=== PATIENT | male | born 1955 | race Caucasian/White ===

== ENCOUNTER 2021-12-29 08:16 | Inpatient (IN) | payer MEDICARE, MEDICAID, SELFPAY ==
[2021-12-29] VITALS (16 sets, daily range): BP systolic 100–141; BP diastolic 62–83; PULSE 55–122; RESP 15–22; TEMP 36.6–36.8; O2SAT 92–99; BMI 30.9
--- NOTE | 2021-12-29 08:27 | XRR_ITS ---
PROCEDURE INFORMATION: Exam: XR Chest Exam date and time: 12/29/2021 8:59 AM Age: 66 years old Clinical indication: Cough and dyspnea; Additional info: Dyspnea/cough TECHNIQUE: Imaging protocol: Radiologic exam of the chest. Views: 1 view. COMPARISON: CR Chest 2 views* 04/30/2016 10:22 AM FINDINGS: Lungs: There is prominent left lower lobe consolidation consistent with a pneumonia. The right lung is grossly clear. Pleural spaces: Unremarkable. No pleural effusion. No pneumothorax. Heart/Mediastinum: Unremarkable. No cardiomegaly. Bones/joints: Unremarkable. XR/XR chest 1V portable [id number] IMPRESSION: Left lower lobe pneumonia.
--- NOTE | 2021-12-29 08:28 | ED_ITS ---
HPI - Weakness General: Chief complaint: Weakness Stated complaint: WEAKNESS Time Seen by Provider: 12/29/21 08:19 Source: patient Mode of arrival: EMS Limitations: no limitations History of Present Illness: 66-year-old male with a history of diabetes mellitus and COPD presents emergency room complaining of shortness of breath and weakness for the last 3 weeks. With any exertion he gets significantly short of breath he denies any chest pain. He has had minimally productive cough. Initially he thought he had COVID however it. Has been persisting. He has no known history of coronary artery disease he states he has had several normal stress test in the past. He has not recently tested positive for COVID. He uses albuterol as needed which helps somewhat. MD Complaint: generalized weakness Onset (ago): week(s) (3) Duration: constant Severity: moderate Relieving factors: none Exacerbating factors: none Associated symptoms: Reports decreased appetite, myalgias, nausea and short of breath; Denies chest pain, chills, confusion, melena, diaphoresis, dysuria, easy bruising, fever(s), headache(s), rash, syncope or vomiting Review of Systems Const: Denies: fever(s), chills or diaphoresis Card: Denies: chest pain or syncope GI: Reports: nausea; Denies: abdominal pain, vomiting or melena : Denies: dysuria Neuro: Denies: headache(s) or confusion Yousif/Lymph: Denies: easy bruising [facility] ED PFSH: Medical History CKD (chronic kidney disease) COPD (chronic obstructive pulmonary disease) Diabetes 1.5, managed as type 2 Glaucoma History of cleft palate HTN (hypertension) Hyperlipidemia ASHUTOSH (obstructive sleep apnea) Sinus tachycardia Tobacco abuse Tobacco dependency Venous stasis Surgical History H/O enucleation of left eyeball Family History Father Diabetes CAD (coronary artery disease) Sister Diabetes Social History Smoking and tobacco status: current every day smoker cigarettes Packs smoked per day: 1 Alcohol intake: current Alcohol intake frequency: holidays/special occasions only Physical Exam Const: COMMON NORMALS: no acute distress GENERAL APPEARANCE: cooperative and comfortable ORIENTATION/CONSCIOUSNESS: Yes awake, Yes oriented to person, Yes oriented to place and Yes oriented to time HENMT: COMMON NORMALS: normocephalic, atraumatic and hearing grossly normal bilaterally HEAD & SCALP: normocephalic and atraumatic Resp: AUSCULTATION: rhonchi left lower and wheezes Cardio: COMMON NORMALS: regular rhythm and No murmurs present (Cardio) RATE: tachycardic RHYTHM: regular rhythm HEART SOUNDS: Clicking heart sound present GI: COMMON NORMALS: Soft to palpation and No hepatosplenomegaly present AUSCULTATION: Yes normoactive bowel sounds PALPATION: Yes Soft to palpation, No Tenderness to palpation present (GI), No Guarding due to palpation present (GI) and Yes No hepatosplenomegaly present Extremity: COMMON NORMALS: normal to inspection, capillary refill normal, no clubbing, cyanosis or edema, no calf tenderness and no pedal edema Neuro: SENSORIUM/ORIENTATION: Yes oriented to person, Yes oriented to place and Yes oriented to time Skin: COMMON NORMALS: no rashes or lesions noted GENERAL SKIN EXAM: no rashes or lesions noted Course Vital Signs: Vital signs: Vital Signs Temperature 98.2 F 12/29/21 08:17 Pulse Rate 115 H 12/29/21 10:30 Respiratory Rate 22 H 12/29/21 10:03 Blood Pressure 117/75 12/29/21 10:30 Pulse Oximetry 96 12/29/21 10:30 Oxygen Delivery Me thod 12/29/21 10:30 Oxygen Flow Rate 2 12/29/21 08:17 MDM - Weakness Medical Decision Making Extensive left lower lobe pneumonia patient has a mildly elevated lactate with tachycardia. He also has significant leukocytosis and I believe he can safely be treated as an outpatient disease with hospitalist started ceftriaxone and Zithromax will admit. Lab Data : 12/29/21 08:41 12/29/21 08:41 Radiology Impressions Chest X-Ray 12/29/21 08:27 IMPRESSION: Left lower lobe pneumonia. Laboratory Results WBC 22.5 10^3/uL (4.0-10.0) H 12/29/21 08:41 RBC 4.43 10^6/uL (4.1-5.3) 12/29/21 08:41 Hgb 13.4 g/dL (11.7-16.6) 12/29/21 08:41 Hct 40.4 % (42.0-52.0) L 12/29/21 08:41 MCV 91.2 fl (80-94) 12/29/21 08:41 MCH 30.2 pg (28.0-34.0) 12/29/21 08:41 MCHC 33.2 g/dL (30.0-36.0) 12/29/21 08:41 RDW 13.4 % (12.1-15.1) 12/29/21 08:41 Plt Count 582 10^3/cmm (130-400) H 12/29/21 08:41 MPV 9.9 fL (7.4-10.4) 12/29/21 08:41 Neut % (Auto) 82.3 % 12/29/21 08:41 Lymph % (Auto) 6.7 % 12/29/21 08:41 [place] % (Auto) 9.0 % 12/29/21 08:41 Eos % (Auto) 0.0 % 12/29/21 08:41 Baso % (Auto) 0.4 % 12/29/21 08:41 Neut # (Auto) 18.45 10^3/uL (1.8-7.7) H 12/29/21 08:41 Lymph # (Auto) 1.5 10^3/uL (0.8-4.8) 12/29/21 08:41 [place] # (Auto) 2.0 10^3/uL (0.2-0.9) H 12/29/21 08:41 Eos # (Auto) 0.0 10^3/uL (0.0-0.8) 12/29/21 08:41 Baso # (Auto) 0.1 10^3/uL (0.0-0.1) 12/29/21 08:41 Nucleated RBC % (auto) 0 % 12/29/21 08:41 Nucleated RBCs # 0.0 /100WBC 12/29/21 08:41 Specimen Type Arterial 12/29/21 08:27 Sample Site Brachial, left 12/29/21 08:27 ABG pH 7.60 (7.35-7.45) H* 12/29/21 08:27 ABG pCO2 28.8 mmHg (35-45) L 12/29/21 08:27 ABG pO2 53.9 mmHg (80.0-100.0) L 12/29/21 08:27 ABG HCO3 28.5 mmol/L (22-26) H 12/29/21 08:27 ABG O2 Saturation 92.8 12/29/21 08:27 ABG Base Excess 7.4 mmol/L (-2.0-2.0) H 12/29/21 08:27 Zach Test Pos 12/29/21 08:27 A-a O2 Gradient 7.8 mmHg (5-10) 12/29/21 08:27 Hematocrit 39.5 % (42-52) L 12/29/21 08:27 Hgb O2 Saturation 89.2 % (95-100) L 12/29/21 08:27 Carboxyhemoglobin 3.4 %THgb (0.4-20.1) 12/29/21 08:27 Methemoglobin 0.5 % (0.4-1.5) 12/29/21 08:27 Total Hemoglobin 12.9 g/dL (14-18) L 12/29/21 08:27 Sodium 130.0 mmol/L (131-143) L 12/29/21 08:27 Potassium 3.1 mmol/L (3.5-5.0) L 12/29/21 08:27 Glucose 279.0 mg/dL (70-115) H 12/29/21 08:27 Ionized Calcium 1.1 mmol/L (1.1-1.4) 12/29/21 08:27 O2 Delivery Device Room air 12/29/21 08:27 FiO2 21.0 % 12/29/21 08:27 Corral Boss ID Bd 12/29/21 08:27 Sodium 131 mmol/L (136-145) L 12/29/21 08:41 Potassium 3.4 mmol/L (3.5-5.1) L 12/29/21 08:41 Chloride 88 mmol/L (98-107) L 12/29/21 08:41 Carbon Dioxide 26 mmol/L (22-29) 12/29/21 08:41 Anion Gap 20.4 (5-19) H 12/29/21 08:41 BUN 9 mg/dL (8-23) 12/29/21 08:41 Creatinine 0.6 mg/dL (0.7-1.2) L 12/29/21 08:41 GFR Calculation 134.4 mL/min (90-130) H 12/29/21 08:41 Glucose 272 mg/dL (65-115) H 12/29/21 08:41 Calculated Osmolality 280 mOsm/kg (285-295) L 12/29/21 08:41 Lactic Acid 2.3 mmol/L (0.5-2.2) H 12/29/21 08:41 Calcium 7.9 mg/dL (8.5-10.5) L 12/29/21 08:41 Total Bilirubin 0.8 mg/dL (0.15-1.2) 12/29/21 08:41 AST 50 U/L (0-40) H 12/29/21 08:41 ALT 39 U/L (0-41) 12/29/21 08:41 Alkaline Phosphatase 122 U/L (40-130) 12/29/21 08:41 Troponin T Baseline 13 ng/L (0-15) 12/29/21 08:41 NT-Pro-B Natriuret Pep 1432 pg/mL (0-125) H 12/29/21 08:41 Total Protein 5.7 g/dL (6.6-8.7) L 12/29/21 08:41 Albumin 2.3 g/dL (3.5-5.2) L 12/29/21 08:41 Globulin 3.4 g/dL (1.3-4.6) 12/29/21 08:41 Discharge Plan Discharge Patient Disposition: Admitted As Inpatient Clinical Impression: Pneumonia, COPD exacerbation Condition: Stable Coding Level of Care Code ED Credit Collections Rep for Pollo Fwd Exam Detailed
--- NOTE | 2021-12-29 08:36 | ECG_ITS ---
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 Measurements Intervals [place] Rate: 115 P: 83 IA: 142 QRS: 64 QRSD: 102 T: 102 QT: 365 QTc: 505 Interpretive Statements SINUS TACHYCARDIA POSSIBLE RIGHT ATRIAL ENLARGEMENT [0.25mV P-WAVE] POSSIBLE LEFT ATRIAL ENLARGEMENT [-0.1mV P-WAVE IN V1/V2] NONSPECIFIC ST & T-WAVE ABNORMALITY No previous ECG available for comparison Electronically Signed On 12-30-2021 7:16:14 CDT by Gertrudis Fernández M.D. [id number]
[2021-12-29 08:47] LABS: Basophils # 0.1 10^3/uL (0.0-0.1); Basophils % 0.4 %; Hematocrit 40.4 % (42.0-52.0); Hemoglobin 13.4 g/dL (11.7-16.6); Lymphocytes # 1.5 10^3/uL (0.8-4.8); Lymphocytes % 6.7 %; Mean Corpuscular HGB Conc 33.2 g/dL (30.0-36.0); Mean Corpuscular Hemoglobin 30.2 pg (28.0-34.0); Mean Corpuscular Volume 91.2 fl (80-94); Mean Platelet Volume 9.9 fL (7.4-10.4); Neutrophils # 18.45 10^3/uL (1.8-7.7); Neutrophils % 82.3 %; Nucleated Red Blood Cells % 0 %; Platelet Count 582 10^3/cmm (130-400); Red Blood Count 4.43 10^6/uL (4.1-5.3); Red Cell Distribution Width 13.4 % (12.1-15.1); White Blood Count 22.5 10^3/uL (4.0-10.0)
[2021-12-29] MEDS: ipratropium-albuterol 3 mL Neb INHALATION (08:56)
[2021-12-29 09:00] LABS: ABG PCO2 28.8 mmHg (35-45); Alveolar-Arterial Oxygen Gradi 7.8 mmHg (5-10); Arterial Blood Gas Hematocrit 39.5 % (42-52); Base Excess ABG 7.4 mmol/L (-2.0-2.0); Blood Gas Allen Test Pos; Blood Gas Sample Type Arterial; Carboxyhemoglobin 3.4 %THgb (0.4-20.1); HCO3 ABG 28.5 mmol/L (22-26); HGB O2 Sat 89.2 % (95-100); Ionized Calcium Level - ABG 1.1 mmol/L (1.1-1.4); Methemoglobin 0.5 % (0.4-1.5); Oxygen Saturation ABG 92.8; PO2 ABG 53.9 mmHg (80.0-100.0); Potassium Level - ABG 3.1 mmol/L (3.5-5.0); Total Hemoglobin 12.9 g/dL (14-18)
[2021-12-29 09:01] LABS: Blood Gas Operator Identificat BD; Blood Gas Sample Site Brachial, left; Oxygen Device ROOM AIR
[2021-12-29 09:12] LABS: Lactic Sepsis W/Reflex 2.3 mmol/L (0.5-2.2)
[2021-12-29 09:16] LABS: Troponin(5th) Baseline 13 ng/L (0-15)
[2021-12-29 09:23] LABS: Alanine Aminotransferase 39 U/L (0-41); Albumin Level 2.3 g/dL (3.5-5.2); Alkaline Phosphatase 122 U/L (40-130); Anion Gap 20.4 (5-19); Aspartate Amino Transferase 50 U/L (0-40); Blood Urea Nitrogen 9 mg/dL (8-23); Calcium 7.9 mg/dL (8.5-10.5); Carbon Dioxide 26 mmol/L (22-29); Chloride 88 mmol/L (98-107); Globulin 3.4 g/dL (1.3-4.6); Glomerular Filtration Rate 134.4 mL/min (90-130); Glucose 272 mg/dL (65-115); NT Pro B Type Natriuretic Pept 1432 pg/mL (0-125); Osmolality Calculated 280 mOsm/kg (285-295); Potassium 3.4 mmol/L (3.5-5.1); Sodium 131 mmol/L (136-145); Total Bilirubin 0.8 mg/dL (0.15-1.2); Total Protein 5.7 g/dL (6.6-8.7)
[2021-12-29] MEDS: sodium chloride 0.9% 1,000 ML 999 ML IV (09:29)
--- NOTE | 2021-12-29 10:28 | ECG_ITS ---
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 Measurements Intervals [place] Rate: 115 P: 74 MN: 147 QRS: 23 QRSD: 101 T: 104 QT: 364 QTc: 505 Interpretive Statements SINUS TACHYCARDIA POSSIBLE LEFT ATRIAL ENLARGEMENT [-0.1mV P-WAVE IN V1/V2] MODERATE ST DEPRESSION [0.05+ mV ST DEPRESSION] ABNORMAL QRS-T ANGLE [QRS-T AXIS DIFFERENCE > 60] Compared to ECG 12/29/2021 08:36:34 ST (T wave) deviation now present T-wave abnormality no longer present Electronically Signed On 12-30-2021 7:32:50 CDT by Gertrudis Fernández M.D. [id number]
[2021-12-29 10:31] LABS: Reflex Lactate Order REFLEX LACTIC ORDERD
--- NOTE | 2021-12-29 10:47 | P.HP_ITS ---
Providers/Chief Complaint Admitting Physician: Mark Parr MD, hospitalist Primary Care Provider: Mary Jo Nelson DO Chief Complaint: WEAKNESS History of Present Illness Rommel Austin is a 66 year old male who presents to the hospital with complaints of shortness of breath, fatigue, weakness for the last 2 to 3 weeks. He reports a cough occasionally productive of greenish sputum that has persisted. He denies any fever at home, but has not taken his temperature. He reports he is short of breath with any exertion. He has had no vomiting or diarrhea but reports he has not been eating and drinking well with his illness. He denies any ill contacts. He reports no COVID contacts. No chest discomfort. No hematemesis. In the emergency department he received a breathing treatment and IV steroids. Review of Systems General: Reports: 10 or more systems reviewed and unremarkable except in HPI and below Const: Reports: fatigue and malaise; Denies: fever(s) or chills Eyes: Denies: change in vision ENMT: Denies: throat pain Card: Reports: swelling of feet/ankles and dyspnea on exertion; Denies: chest pain Resp: Reports: dyspnea and productive cough GI: Denies: abdominal pain, nausea, vomiting, hematochezia or melena : Denies: flank pain Musc: Denies: neck pain Skin/Breast: Denies: rash Neuro: Denies: headache(s) or numbness in extremities Psych: Denies: anxiety or depression Endo: Denies: polyuria Yousif/Lymph: Denies: easy bruising or easy bleeding All/Imm: Denies: urticaria Medications/Allergies Home Medications Medication Instructions Recorded Confirmed Last Taken Type albuterol sulfate 90 mcg/actuation 2 puff inhalation Q6H PRN 10/25/19 11/05/20 Unknown History aerosol inhaler (ProAir HFA) bimatoprost 0.01 % eye drops 1 drop ophthalmic (eye) DAILY 10/25/19 11/05/20 Unknown History (Faith) brinzolamide 1 %-brimonidine 0.2 % 1 drop ophthalmic (eye) TID 10/25/19 11/05/20 Unknown History eye drops,suspension (Simbrinza) metformin 500 mg tablet 500 mg PO DAILY 10/25/19 11/05/20 Unknown History simvastatin 20 mg tablet 20 mg PO DAILY 10/25/19 11/05/20 Unknown History Allergies Allergy/AdvReac Type Severity Reaction Status Date / Time propranolol Allergy Severe ALGY-Bliste Verified 11/05/20 14:20 r PFSH Acute PFSH: Medical History (Updated 12/29/21 @ 11:04 by Mark Parr MD) CKD (chronic kidney disease) COPD (chronic obstructive pulmonary disease) Diabetes 1.5, managed as type 2 Glaucoma History of cleft palate HTN (hypertension) Hyperlipidemia ASHUTOSH (obstructive sleep apnea) Sinus tachycardia Tobacco abuse Tobacco dependency Venous stasis Surgical History H/O enucleation of left eyeball Family History Father Diabetes CAD (coronary artery disease) Sister Diabetes Social History Smoking and tobacco status: current every day smoker cigarettes Packs smoked per day: 1 Alcohol intake: current Alcohol intake frequency: holidays/special occasions only Vitals/I&O/Wt Last Vital Signs Temp 98.2 F 12/29/21 08:17 Pulse 115 H 12/29/21 10:30 Resp 22 H 12/29/21 10:03 BP 117/75 12/29/21 10:30 Pulse Ox 96 12/29/21 10:30 O2 Del Method 12/29/21 10:30 O2 Flow Rate 2 12/29/21 08:17 Weight last 48 hrs Weight 106.594 kg Physical Exam Narrative: General exam is a white male, with elevated heart rate, tachypneic with mild to moderate retractions and respiratory distress with frequent coughing. He appears acutely ill. HEENT: Atraumatic normocephalic. Pupils equally round. Oropharynx postsurgical, no uvula secondary to cleft palate repair. Candidiasis is noted Neck is supple no lymphadenopathy or thyromegaly Cardiovascular tachycardic, regular, no murmur Lungs diminished breath sounds at the bases. Crackles on the left. Egophony on the left. Abdomen is soft nontender positive bowel sounds. No obvious organomegaly exam is deferred Extremities no cyanosis or clubbing. Trace edema is present bilaterally. Skin no rash Neuro no obvious focal deficits. Data : 12/29/21 08:41 12/29/21 08:41 Other Labs: Chest x-ray demonstrates a left lower lobe pneumonia. EKG demonstrates sinus tachycardia, normal axis, right atrial enlargement. T wave inversion is noted laterally in V4 through 6 ABG demonstrates a pH of 7.6, PCO2 29, PO2 54 on room air Lactic acid is elevated at 2.3, calcium is 7.9, AST 50 all other LFTs normal BNP elevated at 1432 Albumin 2.3 A&P Assessment and plan (1) Pneumonia: Patient with significant pneumonia on chest x-ray. He has notably low PO2 on room air. His white blood cell count is markedly elevated, as is his heart rate. Initiate Rocephin and azithromycin Obtain sputum and blood cultures Initiate Rocephin and azithromycin May need oxygen, will continue to evaluate Discussed with him stopping smoking Status: Acute (2) COPD exacerbation: Received Solu-Medrol in the emergency department From my understanding wheezing is markedly improved after breathing treatment. Continue prednisone 40 mg daily Continue pulmonary toilet with every 4 hours DuoNeb, twice daily budesonide Status: Acute (3) Diabetes 1.5, managed as type 2: Consistent carb diet Sliding scale insulin Check TSH Status: Acute (4) Thrush: His nutrition is poor. He is diabetic. Albumin is low. Check urinalysis to make sure significant proteinuria does not exist. Check HIV Initiate nystatin Monitor for improvement Status: Acute Plan Mild hypokalemia. Supplement. Check magnesium level. Mild hypokalemia. May in part be due to his hyperglycemia. Leukocytosis, secondary to pneumonia Elevated AST. Check hepatitis panel Elevated BNP. Check echocardiogram Attestations Medical Necessity Statement*: Will require greater than 2 midnight stay secondary to severe pneumonia on x-ray, low PO2, significantly abnormal vital signs in this patient with visible respiratory distress with retractions. Coding Level of Care Code Acute Clinical Courier for [facility]o Ronquillo Diagnoses Pneumonia J18.9 COPD exacerbation J44.1 Diabetes 1.5, managed as type 2 E13.9 Thrush B37.0
[2021-12-29 11:30] LABS: Hepatitis A Antibody IgM Non-Reactive (Nonreactive); Hepatitis B Core IgM Non-Reactive (Nonreactive); Hepatitis B Surface Antigen Non-Reactive (Nonreactive); Hepatitis C Virus Antibody Non-Reactive (Nonreactive)
[2021-12-29 11:31] LABS: Urine Color Dark Yellow (Yellow)
[2021-12-29 11:35] LABS: Blood Urine Neg (Negative); Nitrate Urine Negative (Negative); Protein Urine Neg (Negative); Specific Gravity, Urine 1.015 (1.005-1.030); Urine Appearance Clear (CLEAR); pH Urine 6 (5-7)
[2021-12-29 11:36] LABS: Bilirubin Urine 1+ (Negative); Glucose Urine UA 4+ (Normal); Ketones Urine 2+ (Negative); Leukocyte Esterase Urine Negative (Negative); Urobilinogen Urine 4+ mg/dL (Negative)
--- NOTE | 2021-12-29 11:41 | PC.PHAR ---
pt states he takes care of his own medications-pt states he hasnt taken metformin 500mg and zocor 20mg in about 3 years [facility] states last filled [id number] states takes no rx medications-ext med history shows sildenafil 20mg take 3 tabs qd prn on 09/06/21 10d/s pt states he never got that medications
[2021-12-29 11:54] LABS: Troponin 5 2HR 12.12 ng/L (0-15)
[2021-12-29 12:03] LABS: HIV 1 & 2 Antibody Non-Reactive (Non-Reactiv); HIV 1 & 2 Antigen Non-Reactive (Non-Reactiv)
[2021-12-29 12:04] LABS: Troponin 5 2HR Delta -0.88 ABS# (0-10)
[2021-12-29 12:09] LABS: Add Urine Culture? No; Bacteria Urine TRACE /hpf; Mucus Urine 1+ /hpf; Squamous Epithelial Cell Urine 0-4 /hpf (0-5); WBC Urine 0-4 /hpf (0-5)
[2021-12-29 13:34] LABS: Adenovirus Not Detected (NOT DETECT); Chlamydia Pneumoniae Not Detected (NOT DETECT); Coronavirus 229E,HKU1,NL63,OC4 Not Detected (NOT DETECT); Human Metapneumovirus Not Detected (NOT DETECT); Human Rhinovirus/Enterovirus Not Detected (NOT DETECT); Influenza A Not Detected (NOT DETECT); Influenza A H1 Not Detected (NOT DETECT); Influenza A H1-2009 Not Detected (NOT DETECT); Influenza A H3 Not Detected (NOT DETECT); Influenza B Not Detected (NOT DETECT); Mycoplasma Pneumoniae Not Detected (NOT DETECT); Parainfluenza Virus Type 1 Not Detected (NOT DETECT); Parainfluenza Virus Type 2 Not Detected (NOT DETECT); Parainfluenza Virus Type 3 Not Detected (NOT DETECT); Parainfluenza Virus Type 4 Not Detected (NOT DETECT); Respiratory Syncytial Virus A Not Detected (NOT DETECT); Respiratory Syncytial Virus B Not Detected (NOT DETECT); SARS-COV-2 Not Detected (NOT DETECT)
[2021-12-29] MEDS: cefTRIAXone 1,000 MG in sodium chloride 0.9% (plus) 50 ML 100 MG IV (14:16)
--- NOTE | 2021-12-29 14:28 | ECG_ITS ---
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 Measurements Intervals [place] Rate: 109 P: 74 MD: 158 QRS: 48 QRSD: 100 T: 103 QT: 383 QTc: 516 Interpretive Statements SINUS TACHYCARDIA WITH FREQUENT VENTRICULAR PREMATURE COMPLEXES POSSIBLE LEFT ATRIAL ENLARGEMENT [-0.1mV P-WAVE IN V1/V2] MODERATE ST DEPRESSION [0.05+ mV ST DEPRESSION] Compared to ECG 12/29/2021 10:29:01 Ventricular premature complex(es) now present ST (T wave) deviation still present Electronically Signed On 12-30-2021 7:31:25 CDT by Gertrudis Fernández M.D. [email or web address].[email or web address]/store/[id number]
[2021-12-29] MEDS: azithromycin 500 MG in sodium chloride 0.9% 250 ML 250 MG IV (14:50)
[2021-12-29] MEDS: potassium chloride ER 20 mEq Tablet 40 MEQ PO (14:53)
[2021-12-29 15:20] LABS: Troponin 5 6HR 9.96 ng/L (0-15)
[2021-12-29 15:34] LABS: Troponin 5 6HR Delta -3.04 ng/L (0-12)
--- NOTE | 2021-12-29 17:50 | USCV_ITS ---
Rommel Austin Age: 66 Gender: M : 1955 Exam Date: 12/29/2021 21:32 Ordering Phys: Mark Parr MD Technologist: JOEY [place] [facility] [place] Indication: elevated BNP BP: 141 / 66 HR: 107 Rhythm: Sinus Technical Quality: Adequate MEASUREMENTS (Male / Female) Normal Values 2D ECHO LV Diastolic Diameter PLAX 5.0 cm 4.2 - 5.9 / 3.9 - 5.3 cm LV Systolic Diameter PLAX 3.1 cm IVS Diastolic Thickness 1.0 cm 0.6 - 1.0 / 0.6 - 0.9 cm IVS Systolic Thickness 2.0 cm LVPW Diastolic Thickness 1.1 cm 0.6 - 1.0 / 0.6 - 0.9 cm LVPW Systolic Thickness 1.3 cm LVOT Diameter 2.0 cm LV Ejection Fraction 2D Teich 68.2 % LV Ejection Fraction MOD 2C 50.0 % LV Ejection Fraction 2C AL 48.1 % LA Diameter 3.3 cm LA Width 3.5 cm LA Height 5.6 cm RA Width 3.7 cm RA Height 4.5 cm Aorta at Sinotubular Diameter 2.8 cm M-MODE Aortic Annulus Diameter 2.7 cm LA Ao Ratio MM 1.1 MV E Point Septal Separation 0.3 cm DOPPLER AV Peak Velocity 161.0 cm/s LVOT Peak Velocity 73.0 cm/s AV Area Cont Eq vti 1.2 cm squared AV Area Cont Eq pk 1.4 cm squared MV Peak Velocity 109.0 cm/s MV Area PHT 4.3 cm squared Mitral E to A Ratio 0.7 MV E' Velocity 44.5 cm/s Mitral E to MV E' Ratio 7.5 Mitral E to LV E' Lateral Ratio 9.4 Mitral E to LV E' Septal Ratio 6.3 TR Peak Velocity 270.0 cm/s TR Peak Gradient 29.2 mmHg TV Peak E Velocity 52.0 cm/s Right Atrial Pressure 5.0 mmHg Pulmonary Artery Systolic Pressu 34.2 mmHg PV Peak Velocity 121.0 cm/s RV Acceleration Time 0.1 s RV Ejection Time 0.3 s RV AcT/ET 0.4 FINDINGS Left Ventricle Left ventricle is normal in size. LV systolic function is borderline low with EF of 45-50%. Borderline global hypokinesis. Grade 1 diastolic dysfunction. Right Ventricle Normal in size and function Right Atrium Normal in size Left Atrium Normal in size Mitral Valve Structurally normal mitral valve. Aortic Valve Grossly normal. No significant stenosis or regurgitation is seen. Tricuspid Valve Trace tricuspid regurgitation. Insufficient TR jet to calculate RVSP Pulmonic Valve Not well-visualized Pericardium Normal Aorta Normal in size IVC CONCLUSIONS LV systolic function is borderline low with EF 45-50%. Grade 1 diastolic dysfunction. No significant valvular heart disease is seen. Trace tricuspid regurgitation. Compared to prior echocardiogram from 2014, no significant changes are seen. Yaon Juarez MD (Electronically Signed) Final Date: 30 December 2021 11:35 S
[2021-12-29] MEDS: enoxaparin 40 mg/0.4 mL Syringe SUBCUT (19:37)
[2021-12-29] MEDS: nystatin 100,000 unit/mL UDC 5 mL 500000 UNIT PO (19:37)
[2021-12-29 21:18] LABS: Glucose Point of Care 355 mg/dL (70-110)
[2021-12-29] MEDS: insulin lispro 100 unit/1 mL SUBCUT (22:06)
[2021-12-30] VITALS (15 sets, daily range): BP systolic 93–119; BP diastolic 56–69; PULSE 55–129; RESP 16–20; TEMP 36.3–36.7; O2SAT 93–96
[2021-12-30] MEDS: ipratropium-albuterol 3 mL Neb INHALATION ×7 (01:17→23:40)
[2021-12-30 06:11] LABS: Glucose Point of Care 261 mg/dL (70-110)
[2021-12-30 06:13] LABS: Basophils # 0.1 10^3/uL (0.0-0.1); Basophils % 0.5 %; Hematocrit 39.3 % (42.0-52.0); Hemoglobin 12.3 g/dL (11.7-16.6); Lymphocytes # 2.2 10^3/uL (0.8-4.8); Lymphocytes % 9.8 %; Mean Corpuscular HGB Conc 31.3 g/dL (30.0-36.0); Mean Corpuscular Hemoglobin 29.8 pg (28.0-34.0); Mean Corpuscular Volume 95.2 fl (80-94); Monocytes # 1.6 10^3/uL (0.2-0.9); Monocytes % 7.4 %; Neutrophils # 17.69 10^3/uL (1.8-7.7); Neutrophils % 80.4 %; Nucleated Red Blood Cells % 0 %; Platelet Count 514 10^3/cmm (130-400); Red Blood Count 4.13 10^6/uL (4.1-5.3); Red Cell Distribution Width 13.7 % (12.1-15.1)
[2021-12-30 06:39] LABS: Alanine Aminotransferase 33 U/L (0-41); Alkaline Phosphatase 99 U/L (40-130); Blood Urea Nitrogen 15 mg/dL (8-23); Calcium 7.6 mg/dL (8.5-10.5); Carbon Dioxide 28 mmol/L (22-29); Chloride 96 mmol/L (98-107); Globulin 3.1 g/dL (1.3-4.6); Glomerular Filtration Rate 165.9 mL/min (90-130); Glucose 237 mg/dL (65-115); Magnesium 2.3 mg/dL (1.7-2.3); Osmolality Calculated 291 mOsm/kg (285-295); Sodium 136 mmol/L (136-145); Total Bilirubin 0.4 mg/dL (0.15-1.2); Total Protein 5.1 g/dL (6.6-8.7)
[2021-12-30 06:47] LABS: Anion Gap 16.2 (5-19); Aspartate Amino Transferase 37 U/L (0-40); Potassium 4.2 mmol/L (3.5-5.1)
[2021-12-30] MEDS: budesonide 0.5 mg/2 mL Neb INHALATION ×2 (08:05→20:34)
--- NOTE | 2021-12-30 08:10 | PM.PN ---
Subjective Subjective: Rommel reports he feels a little bit better. Is able to tolerate food and liquid by mouth. Still coughing quite a bit. Has not been up and out of bed. No chest discomfort. Medications: Reviewed: Yes Vitals/I&O/Wt Last Vital Signs Temp 97.7 F 12/30/21 07:24 Pulse 106 H 12/30/21 08:05 Resp 18 12/30/21 08:05 BP 109/65 12/30/21 07:24 Pulse Ox 94 12/30/21 08:05 O2 Del Method 12/30/21 08:05 O2 Flow Rate 2 12/29/21 08:17 12/29/21 12/30/21 12/30/21 22:59 06:59 14:59 Intake Total 540 / 1540 540 / 2080 Output Total 300 / 300 Balance 240 / 1240 540 / 1780 Weight last 48 hrs Weight 106.594 kg Physical Exam Narrative: General exam is a white male, tachycardic, appears slightly improved from yesterday. Neck is supple no lymphadenopathy or thyromegaly Cardiovascular tachycardic, regular, no murmur Lungs diminished breath sounds at the bases. Crackles on the left. Egophony on the left. Abdomen is soft nontender positive bowel sounds. No obvious organomegaly exam is deferred Extremities no cyanosis or clubbing. Trace edema is present bilaterally. Skin no rash Data : 12/30/21 05:50 12/30/21 05:50 Micro: Microbiology 12/29/21 11:48 Blood Culture - Preliminary Blood SPECIMEN COLLECTED 12/29/21 11:43 Blood Culture - Preliminary Blood SPECIMEN COLLECTED A&P Assessment and plan (1) Pneumonia: Patient with significant pneumonia on chest x-ray. He has notably low PO2 on room air. His white blood cell count is markedly elevated, as is his heart rate. Continue Rocephin and azithromycin Await sputum and blood cultures Discussed with him stopping smoking Status: Acute (2) COPD exacerbation: Continue prednisone Continue pulmonary toilet, with budesonide and DuoNeb Status: Acute (3) Diabetes 1.5, managed as type 2: Consistent carb diet Sliding scale insulin TSH checked and normal Status: Acute (4) Thrush: His nutrition is poor. He is diabetic. Albumin is low. Urinalysis was checked. No significant proteinuria. HIV negative Continue nystatin Monitor for improvement Status: Acute Plan Mild hypokalemia. Resolved Leukocytosis, secondary to pneumonia Elevated AST. Hepatitis panel negative Elevated BNP. Await echocardiogram Attestations Medical Necessity Statement*: Needs continued hospitalization for IV antibiotics for pneumonia and pulmonary toilet for COPD exacerbation. Possible discharge tomorrow. Coding Level of Care Code Acute Clerical Administrative Assistant for [facility] Fwd Diagnoses Pneumonia J18.9 COPD exacerbation J44.1 Diabetes 1.5, managed as type 2 E13.9 Thrush B37.0
[2021-12-30] MEDS: insulin lispro 100 unit/1 mL SUBCUT ×4 (10:10→21:29)
[2021-12-30] MEDS: nystatin 100,000 unit/mL UDC 5 mL 500000 UNIT PO ×4 (10:10→21:28)
[2021-12-30] MEDS: cefTRIAXone 1,000 MG in sodium chloride 0.9% (plus) 50 ML 100 MG IV (10:11)
[2021-12-30] MEDS: azithromycin 500 MG in sodium chloride 0.9% 250 ML 250 MG IV (10:11)
[2021-12-30] MEDS: predniSONE 20 mg Tablet 40 MG PO (10:12)
[2021-12-30 11:48] LABS: Glucose Point of Care 354 mg/dL (70-110)
--- NOTE | 2021-12-30 11:49 | PC.CHAP ---
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 [] Patient/Family/Request visit [] Outpatient visit [] Follow-up visit [] Physician referral [] Code/Alert [x] Routine visit [] Staff referral [] Actively dying [] Patient sleeping [] Family support [] [] Out of room [] Palliative care [] [] Receiving care in room [] Pre-surgical visit [] Trauma [] Long length of stay [] ICU visit [] Other: Relational/Emotional Strength [x] Patient feels connected with others/family/visitors/staff [] Distress [] Loneliness/isolation [] Abandonment Spirituality of Patient [x] Person of Eleni [] Attends Pentecostal of their Eleni [x] Believes in Prayer [] Reads Bible or Sabianism materials [] There are Spiritual issues to be addressed Car Dispatcher Interventions x []x Prayer [x]x Active listening x[] Non-anxious presence [] Spiritual/emotional support [] Crisis/trauma care [] Spiritual counseling [] Bereavement support [] Provided bereavement packet [] Provided Bible/devotional materials [] Provided toy/stuffed animal, coloring book to patient or family member [] Provided Communion [] Anointing/[place] [] Salvation [x] Completed spiritual assessment [] Other: Impact on Illness or Injury [] Angry [] Fearful [] Anxious [] Often cries [] Exhaustion [] Unable to work [] Unable to attend druze [] Unable to walk/stand [] Unable to read [] Unable to drive [] Unable to eat/drink [] Unable to sleep [] Unable to be with family [] Patient intubated [] Other: Summary Time spent with patient 10 min
[2021-12-30 16:14] LABS: Glucose Point of Care 263 mg/dL (70-110)
[2021-12-30 20:38] LABS: Glucose Point of Care 344 mg/dL (70-110)
[2021-12-30] MEDS: enoxaparin 40 mg/0.4 mL Syringe SUBCUT (21:29)
[2021-12-30] MEDS: polyethylene glycol 3350 Pkt 17 gm PO (23:05)
[2021-12-31] VITALS (8 sets, daily range): BP systolic 116–123; BP diastolic 68–76; PULSE 98–106; RESP 16–18; TEMP 36.5–36.9; O2SAT 95–100
[2021-12-31] MEDS: ipratropium-albuterol 3 mL Neb INHALATION ×3 (04:06→11:26)
[2021-12-31 04:18] LABS: Basophils # 0.1 10^3/uL (0.0-0.1); Basophils % 0.3 %; Hematocrit 37.1 % (42.0-52.0); Hemoglobin 11.7 g/dL (11.7-16.6); Lymphocytes # 2.6 10^3/uL (0.8-4.8); Lymphocytes % 13.8 %; Mean Corpuscular HGB Conc 31.5 g/dL (30.0-36.0); Mean Corpuscular Hemoglobin 29.3 pg (28.0-34.0); Mean Corpuscular Volume 92.8 fl (80-94); Mean Platelet Volume 9.7 fL (7.4-10.4); Monocytes # 1.2 10^3/uL (0.2-0.9); Monocytes % 6.4 %; Neutrophils # 14.26 10^3/uL (1.8-7.7); Neutrophils % 77.4 %; Nucleated Red Blood Cells % 0 %; Platelet Count 522 10^3/cmm (130-400); Red Cell Distribution Width 13.6 % (12.1-15.1); White Blood Count 18.4 10^3/uL (4.0-10.0)
[2021-12-31 04:47] LABS: Anion Gap 13.4 (5-19); Blood Urea Nitrogen 15 mg/dL (8-23); Calcium 7.9 mg/dL (8.5-10.5); Carbon Dioxide 29 mmol/L (22-29); Chloride 98 mmol/L (98-107); Glomerular Filtration Rate 134.4 mL/min (90-130); Glucose 166 mg/dL (65-115); Osmolality Calculated 289 mOsm/kg (285-295); Potassium 3.4 mmol/L (3.5-5.1); Sodium 137 mmol/L (136-145)
[2021-12-31] MEDS: acetaminophen 325 mg Tablet 650 MG PO (05:47)
[2021-12-31 06:33] LABS: Glucose Point of Care 192 mg/dL (70-110)
[2021-12-31] MEDS: budesonide 0.5 mg/2 mL Neb INHALATION (07:20)
--- NOTE | 2021-12-31 07:28 | PC.NURSE ---
patient having a breathing treatment during vitals
[2021-12-31] MEDS: predniSONE 20 mg Tablet 40 MG PO (08:27)
[2021-12-31] MEDS: potassium chloride ER 20 mEq Tablet 40 MEQ PO (08:27)
[2021-12-31] MEDS: nystatin 100,000 unit/mL UDC 5 mL 500000 UNIT PO (08:27)
--- NOTE | 2021-12-31 08:46 | P.DS_ITS ---
Discharge Providers Date of Admission: 12/29/21 16:41 Date of Discharge: December 31, 2021 Attending Provider at Admission: Mark Parr MD Attending Provider at Discharge: Mark Parr MD Primary Care Provider: Mary Jo Nelson DO Diagnoses at Discharge Discharge Diagnosis (1) Pneumonia: Status: Acute (2) COPD exacerbation: Status: Acute (3) Diabetes 1.5, managed as type 2: Status: Acute (4) Thrush: Status: Acute Reason for Visit Reason for Visit: WEAKNESS Hospital Course Hospital Course Rommel is a 66-year-old white male who presented to the hospital short of breath. He was found to have a significant left lower lobe pneumonia, with abnormal vital signs and markedly elevated white blood cell count.. He was placed in the hospital on Rocephin and azithromycin. Blood cultures were obtained. He also had a COPD exacerbation, and a dose of IV steroids was given and p.o. steroids initiated as well as pulmonary toilet. During his hospital stay he did well, with vital signs improving and he being less short of breath and having less cough. By December 31 it was thought he could be discharged home. At that time he was afebrile. He was having some right lower back pain with radiation into his leg. He believes this might be sciatica. He has had this before and we discussed further evaluation if it persists. He was able to ambulate without difficulty during his hospital stay. He finished 3 days of IV Zithromax in the hospital and therefore will finish up 7 days of cefdinir as an outpatient. He w ill follow-up with a primary care provider in 3 to 5 days, and will need a repeat chest x-ray arranged by primary care provider in 3 weeks to ensure clearing of pneumonia. I discussed this in depth with the patient, that this needs to be done to prove no masses/tumors are in the area of pneumonia. He was given an opportunity to ask questions, and had no further concerns at discharge. He was encouraged not to smoke. I will restart his metformin upon discharge that he was on previously, for his diabetes. From my understanding he had lost his previous primary care provider and had not been taking the medicine on admission. He was also noted to have some thrush on admission that will be treated with nystatin. HIV was negative. An echocardiogram was done while he was in the hospital, which demonstrated borderline low EF at 45 to 50%, grade 1 diastolic dysfunction, no significant valvular heart disease and no change from 2015. This was done secondary to slight elevation in BNP on admission. He did not have clinical evidence of heart failure. Further evaluation for this can occur as an outpatient, as it appears unchanged from 7 years previously. Physical Exam Narrative: General exam no apparent distress Neck is supple no lymphadenopathy or thyromegaly Cardiovascular regular rate and rhythm without murmur Lungs clear no wheezing or crackles. Diminished breath sounds were noted bilaterally Abdomen is soft with positive bowel sounds Extremities no cyanosis clubbing or edema Discharge Data Studies Completed and Pending Completed Studies During Hospitalization Category Date Time Status XR chest 1V portable [id number] Stat Exams 12/29/21 08:27 Completed CV. echo complete* [id number] Routine Ultrasound 12/29/21 17:50 Completed Pending at discharge Category Date Time Status Blood Culture Stat Lab 12/29/21 11:48 Results Sputum Culture and Gram Stain Routine Lab 12/29/21 10:56 Uncollected Radiology Impressions Chest X-Ray 12/29/21 08:27 IMPRESSION: Left lower lobe pneumonia. Laboratory Results WBC 18.4 10^3/uL (4.0-10.0) H 12/31/21 03:43 RBC 4.00 10^6/uL (4.1-5.3) L 12/31/21 03:43 Hgb 11.7 g/dL (11.7-16.6) 12/31/21 03:43 Hct 37.1 % (42.0-52.0) L 12/31/21 03:43 MCV 92.8 fl (80-94) 12/31/21 03:43 MCH 29.3 pg (28.0-34.0) 12/31/21 03:43 MCHC 31.5 g/dL (30.0-36.0) 12/31/21 03:43 RDW 13.6 % (12.1-15.1) 12/31/21 03:43 Plt Count 522 10^3/cmm (130-400) H 12/31/21 03:43 MPV 9.7 fL (7.4-10.4) 12/31/21 03:43 Neut % (Auto) 77.4 % 12/31/21 03:43 Lymph % (Auto) 13.8 % 12/31/21 03:43 [place] % (Auto) 6.4 % 12/31/21 03:43 Eos % (Auto) 0.0 % 12/31/21 03:43 Baso % (Auto) 0.3 % 12/31/21 03:43 Neut # (Auto) 14.26 10^3/uL (1.8-7.7) H 12/31/21 03:43 Lymph # (Auto) 2.6 10^3/uL (0.8-4.8) 12/31/21 03:43 [place] # (Auto) 1.2 10^3/uL (0.2-0.9) H 12/31/21 03:43 Eos # (Auto) 0.0 10^3/uL (0.0-0.8) 12/31/21 03:43 Baso # (Auto) 0.1 10^3/uL (0.0-0.1) 12/31/21 03:43 Nucleated RBC % (auto) 0 % 12/31/21 03:43 Nucleated RBCs # 0.0 /100WBC 12/31/21 03:43 Specimen Type Arterial 12/29/21 08:27 Sample Site Brachial, left 12/29/21 08:27 ABG pH 7.60 (7.35-7.45) H* 12/29/21 08:27 ABG pCO2 28.8 mmHg (35-45) L 12/29/21 08:27 ABG pO2 53.9 mmHg (80.0-100.0) L 12/29/21 08:27 ABG HCO3 28.5 mmol/L (22-26) H 12/29/21 08:27 ABG O2 Saturation 92.8 12/29/21 08:27 ABG Base Excess 7.4 mmol/L (-2.0-2.0) H 12/29/21 08:27 Zach Test Pos 12/29/21 08:27 A-a O2 Gradient 7.8 mmHg (5-10) 12/29/21 08:27 Hematocrit 39.5 % (42-52) L 12/29/21 08:27 Hgb O2 Saturation 89.2 % (95-100) L 12/29/21 08:27 Carboxyhemoglobin 3.4 %THgb (0.4-20.1) 12/29/21 08:27 Methemoglobin 0.5 % (0.4-1.5) 12/29/21 08:27 Total Hemoglobin 12.9 g/dL (14-18) L 12/29/21 08:27 Sodium 130.0 mmol/L (131-143) L 12/29/21 08:27 Potassium 3.1 mmol/L (3.5-5.0) L 12/29/21 08:27 Glucose 279.0 mg/dL (70-115) H 12/29/21 08:27 Ionized Calcium 1.1 mmol/L (1.1-1.4) 12/29/21 08:27 O2 Delivery Device Room air 12/29/21 08:27 FiO2 21.0 % 12/29/21 08:27 Education And Training Manager ID Bd 12/29/21 08:27 Sodium 137 mmol/L (136-145) 12/31/21 03:43 Potassium 3.4 mmol/L (3.5-5.1) L 12/31/21 03:43 Chloride 98 mmol/L (98-107) 12/31/21 03:43 Carbon Dioxide 29 mmol/L (22-29) 12/31/21 03:43 Anion Gap 13.4 (5-19) 12/31/21 03:43 BUN 15 mg/dL (8-23) 12/31/21 03:43 Creatinine 0.6 mg/dL (0.7-1.2) L 12/31/21 03:43 GFR Calculation 134.4 mL/min (90-130) H 12/31/21 03:43 Glucose 166 mg/dL (65-115) H 12/31/21 03:43 POC Glucose 192 mg/dL (70-110) H 12/31/21 06:22 Calculated Osmolality 289 mOsm/kg (285-295) 12/31/21 03:43 Lactic Acid 2.3 mmol/L (0.5-2.2) H 12/29/21 08:41 Lactic Acid (Sepsis) 2.0 mmol/L (0.5-2.2) 12/29/21 10:56 Calcium 7.9 mg/dL (8.5-10.5) L 12/31/21 03:43 Magnesium 2.3 mg/dL (1.7-2.3) 12/30/21 05:50 Total Bilirubin 0.4 mg/dL (0.15-1.2) 12/30/21 05:50 AST 37 U/L (0-40) 12/30/21 05:50 ALT 33 U/L (0-41) 12/30/21 05:50 Alkaline Phosphatase 99 U/L (40-130) 12/30/21 05:50 Troponin T Baseline 13 ng/L (0-15) 12/29/21 08:41 Troponin T 120 Minute 12.12 ng/L (0-15) 12/29/21 10:56 Delta Troponin T -0.88 ABS# (0-10) L 12/29/21 10:56 Troponin T Hi Sens 6Hr 9.96 ng/L (0-15) 12/29/21 14:33 Troponin T Hi Sens 6Hr Delta -3.04 ng/L (0-12) L 12/29/21 14:33 NT-Pro-B Natriuret Pep 1432 pg/mL (0-125) H 12/29/21 08:41 Total Protein 5.1 g/dL (6.6-8.7) L 12/30/21 05:50 Albumin 2.0 g/dL (3.5-5.2) L 12/30/21 05:50 Globulin 3.1 g/dL (1.3-4.6) 12/30/21 05:50 TSH 2.50 uIU/mL (0.27-4.20) 12/29/21 08:41 Urine Color Dark yellow (Yellow) 12/29/21 11:17 Urine Appearance Clear (CLEAR) 12/29/21 11:17 Urine pH 6 (5-7) 12/29/21 11:17 Ur Specific [place] 1.015 (1.005-1.030) 12/29/21 11:17 Urine Protein Neg (Negative) 12/29/21 11:17 Urine Glucose (UA) 4+ (Normal) H 12/29/21 11:17 Urine Ketones 2+ (Negative) H 12/29/21 11:17 Urine Blood Neg (Negative) 12/29/21 11:17 Urine Nitrate Negative (Negative) 12/29/21 11:17 Urine Bilirubin 1+ (Negative) H 12/29/21 11:17 Urine Urobilinogen 4+ mg/dL (Negative) H 12/29/21 11:17 Ur Leukocyte Esterase Negative (Negative) 12/29/21 11:17 Urine RBC None /hpf (0-2) 12/29/21 11:17 Urine WBC 0-4 /hpf (0-5) H 12/29/21 11:17 Ur Squamous Epith Cells 0-4 /hpf (0-5) H 12/29/21 11:17 Amorphous Sediment Not Reportable 12/29/21 11:17 Urine Bacteria Trace /hpf (NONE) 12/29/21 11:17 Urine Mucus 1+ /hpf 12/29/21 11:17 Coronavirus 229E (PCR) Not detected (NOT DETECT) 12/29/21 11:25 Hepatitis A IgM Ab Non-reactive (Nonreactive) 12/29/21 08:41 Hep Bs Antigen Non-reactive (Nonreactive) 12/29/21 08:41 Hep B Core IgM Ab Non-reactive (Nonreactive) 12/29/21 08:41 Hepatitis C Antibody Non-reactive (Nonreactive) 12/29/21 08:41 HIV 1&2 Ab & HIV 1 Ag Non-reactive (Non-Reactiv) 12/29/21 08:41 HIV 1&2 Antibody Non-reactive (Non-Reactiv) 12/29/21 08:41 SARS-CoV-2 (PCR) Not detected (NOT DETECT) 12/29/21 11:25 Vitals Last Vital Signs Temp 97.7 F 12/31/21 07:27 Pulse 103 H 12/31/21 07:31 Resp 18 12/31/21 07:27 BP 116/76 12/31/21 07:27 Pulse Ox 100 12/31/21 07:27 O2 Del Method 12/31/21 07:27 O2 Flow Rate 2 12/29/21 08:17 Discharge Plan Discharge Patient Disposition: Home Condition: Stable Prescriptions: New prednisone 20 mg Tablet 40 mg PO DAILY Qty: 6 0RF budesonide 0.5 mg/2 mL Suspension For Nebulization 0.5 mg inhalation BID.RESPIRATORY Qty: 120 0RF metformin 500 mg tablet 500 mg PO BID Qty: 60 0RF nystatin 100,000 unit/mL Suspension 500,000 unit PO QID Qty: 200 0RF ipratropium-albuterol 0.5 mg-3 mg(2.5 mg base)/3 mL solution for nebulization 3 ml inhalation QID Qty: 180 0RF cefdinir 300 mg capsule 300 mg PO BID 10 Days Qty: 20 0RF Continued Tylenol Ex Str Rapid Release 500 mg Tablet 1,000 mg PO Q6H PRN (Reason: Pain) Discontinued ibuprofen 200 mg Tablet 600 - 800 mg PO Q6H PRN (Reason: Pain) Discharge Orders: Discharge Order (Routine); Ordered 12/31/21 Ordered By: Mark Parr Other Ambulatory Orders: DME: Nebulizer with Neb Kit (Order) Location: None Selected Ordered By: Mark Parr Referrals: Gregory Lombardi MD [Physician] - 01/08/22 2:30 pm Discharge Diet: Diabetic Discharge Activity: Increase activity as tolerated Patient Instructions: Opioid Safety Activity Restrictions/Additional Instructions: Follow up with PCP in 3-5 days Please arrange for follow up CXR in 3 weeks for follo wup of pneumonia, PCP to arrange. No smoking. Please give today's dose of Zithromax prior to discharge. Discharge Attestations Time Spent in Discharge Care*: greater than 30 min Quality Metrics Clinical Quality Measures [ No reported AMI, CVA or VTE this stay] Coding Level of Care Code Acute Chg FW DC note Diagnoses Pneumonia J18.9 COPD exacerbation J44.1 Diabetes 1.5, managed as type 2 E13.9 Thrush B37.0
[2021-12-31] MEDS: azithromycin 500 MG in sodium chloride 0.9% 250 ML 250 MG IV (11:11)
[2021-12-31] MEDS: cefTRIAXone 1,000 MG in sodium chloride 0.9% (plus) 50 ML 100 MG IV (11:13)
[2021-12-31] MEDS: insulin lispro 100 unit/1 mL SUBCUT (11:14)
[2021-12-31 12:10] LABS: Glucose Point of Care 457 mg/dL (70-110)
[2021-12-31 12:10] LABS: Glucose Point of Care 441 mg/dL (70-110)
--- NOTE | 2021-12-31 13:32 | PC.NURSE ---
Pt was discharged at 1324 with belongings (including wallet pullef from [employer]). Vamp Wetter assisted patient on to [place] [employer] [facility] which was going to take him home to [address]. Bus fare provided. Instructions and follow up appointment given.
== END 2021-12-31 13:24 | disposition home or self-care (01) | DRG 190 ==
LOC: ER 11:16 → MEDSURG 16:43
PROVIDERS: Admitting Provider Internal Medicine; Emergency Provider Family Medicine; PCP Family Medicine; Visit Provider Internal Medicine
DX: J44.0 Chronic obstructive pulmonary disease with (acute) lower respiratory infection (principal); J18.9 Pneumonia, unspecified organism; B37.0 Candidal stomatitis; J44.1 Chronic obstructive pulmonary disease with (acute) exacerbation; E13.22 Other specified diabetes mellitus with diabetic chronic kidney disease; I12.9 Hypertensive chronic kidney disease with stage 1 through stage 4 chronic kidney disease, or unspecified chronic kidney disease; N18.9 Chronic kidney disease, unspecified; E13.39 Other specified diabetes mellitus with other diabetic ophthalmic complication; H42 Glaucoma in diseases classified elsewhere; E78.5 Hyperlipidemia, unspecified; G47.33 Obstructive sleep apnea (adult) (pediatric); Z90.01 Acquired absence of eye; F17.210 Nicotine dependence, cigarettes, uncomplicated; E87.6 Hypokalemia; M54.41 Lumbago with sciatica, right side
CPT/HCPCS: 36415; 36416; 71045; 80048; 80051; 80053; 80074; 81001; 82330; 82805; 82962; 83605; 83735; 83880; 84443; 84484; 85025; 87040; 87635; 87806; 93005; 93306; 94640; 96365; 96367; 96372; 96375; 99285; J0456; J0696; J1650; J1815; J2930; J7030; J7050; J7512; J7626

== ENCOUNTER → 2022-03-04 08:40 | Outpatient (BNVA) | payer MEDICARE, MEDICAID, SELFPAY | PROVIDERS: PCP Family Medicine Adult Medicine; Visit Provider Family Medicine Adult Medicine | DX: E78.5 Hyperlipidemia, unspecified (principal); E13.9 Other specified diabetes mellitus without complications | CPT/HCPCS: 80061; 83036 ==

== ENCOUNTER → 2022-09-01 08:20 | Outpatient (BNVA) | payer MEDICARE, MEDICAID, SELFPAY | PROVIDERS: PCP Family Medicine Adult Medicine; Visit Provider Family Medicine Adult Medicine | DX: E78.5 Hyperlipidemia, unspecified (principal); I10 Essential (primary) hypertension; E13.9 Other specified diabetes mellitus without complications; Z87.448 Personal history of other diseases of urinary system | CPT/HCPCS: 80053; 80061; 83036 ==

== ENCOUNTER → 2022-11-26 10:40 | Outpatient (BNVA) | payer MEDICARE, MEDICAID, SELFPAY | PROVIDERS: PCP Family Medicine Adult Medicine; Visit Provider Family Medicine Adult Medicine | DX: E13.9 Other specified diabetes mellitus without complications (principal); I10 Essential (primary) hypertension | CPT/HCPCS: 83036 ==

== ENCOUNTER → 2023-02-23 10:48 | Outpatient (BNVA) | payer MEDICARE, MEDICAID, SELFPAY | PROVIDERS: PCP Family Medicine Adult Medicine; Visit Provider Family Medicine Adult Medicine | DX: E13.9 Other specified diabetes mellitus without complications (principal); I10 Essential (primary) hypertension | CPT/HCPCS: 80048; 83036 ==

== ENCOUNTER → 2023-08-31 08:52 | Outpatient (BNVA) | payer MEDICARE, MEDICAID, SELFPAY | PROVIDERS: PCP Family Medicine Adult Medicine; Visit Provider Family Medicine Adult Medicine | DX: I15.2 Hypertension secondary to endocrine disorders (principal); E78.5 Hyperlipidemia, unspecified; E11.39 Type 2 diabetes mellitus with other diabetic ophthalmic complication | CPT/HCPCS: 80053; 80061; 83036; 84443 ==

== ENCOUNTER → 2024-06-19 10:38 | Outpatient (BNVA) | payer MEDICARE, MEDICAID, SELFPAY | PROVIDERS: PCP Family Medicine Adult Medicine; Visit Provider Family Medicine | DX: E11.39 Type 2 diabetes mellitus with other diabetic ophthalmic complication (principal); I15.2 Hypertension secondary to endocrine disorders; E78.2 Mixed hyperlipidemia; J43.1 Panlobular emphysema; Z76.89 Persons encountering health services in other specified circumstances; F17.210 Nicotine dependence, cigarettes, uncomplicated | CPT/HCPCS: 80053; 82043; 83036; 84443; 85025 ==

== ENCOUNTER → 2024-06-21 13:44 | Outpatient (BNVA) | payer MEDICARE, MEDICAID, SELFPAY | PROVIDERS: PCP Family Medicine Adult Medicine; Visit Provider Podiatrist Foot & Ankle Surgery | DX: L60.3 Nail dystrophy (principal); E11.39 Type 2 diabetes mellitus with other diabetic ophthalmic complication; G62.9 Polyneuropathy, unspecified; Z79.84 Long term (current) use of oral hypoglycemic drugs | CPT/HCPCS: 11721; 99203 ==

== ENCOUNTER 2024-07-14 08:28 | Outpatient (CLI) | payer MEDICARE, MEDICAID, SELFPAY ==
--- NOTE | 2024-07-14 09:00 | CT_ITS ---
WS: [id number] LDCT LUNG CANCER SCREENING TECHNIQUE: Noncontrast CT of the chest with coronal and sagittal reformatted images. CLINICAL INFORMATION: smoker; screening; 49pk yr COMPARISON: None. DLP: 62.17 mGy.cm DIvol: Mean CTDIvol: 0.90 (mGy) All CT scans at [facility] use at least one of these dose optimization techniques: automated exposure control; mA and/or kV adjustment per patient size (includes targeted exams where dose is matched to clinical indication); or iterative reconstruction. FINDINGS: Advanced chronic emphysematous changes. Fibrosis in the lung apices. No suspicious pulmonary parenchymal abnormalities. Tiny subpleural nodule LEFT upper lobe. Normal caliber thoracic aorta. Aortic calcification. Coronary calcification. No mediastinal or hilar lymphadenopathy. No axillary lymphadenopathy. Tiny esophageal hiatal hernia. Splenic artery calcifications. Moderate thoracic kyphosis. A few Schmorl's nodes in the midthoracic spine. CT/CT lung screening [id number] IMPRESSION: LUNG-RADS: 2-Benign Appearance or Behavior FOLLOW UP: 12 Month: Continue annual screening with LDCT
== END 2024-07-14 08:29 | disposition home or self-care (01) ==
LOC: RAD 08:29
PROVIDERS: PCP Family Medicine Adult Medicine; Visit Provider Family Medicine
DX: Z12.2 Encounter for screening for malignant neoplasm of respiratory organs (principal); F17.210 Nicotine dependence, cigarettes, uncomplicated; J43.9 Emphysema, unspecified; J84.10 Pulmonary fibrosis, unspecified; I70.0 Atherosclerosis of aorta; I25.10 Atherosclerotic heart disease of native coronary artery without angina pectoris; I70.8 Atherosclerosis of other arteries; M40.294 Other kyphosis, thoracic region; M51.44 Schmorl's nodes, thoracic region
CPT/HCPCS: 71271

== ENCOUNTER → 2024-08-21 14:14 | Outpatient (BNVA) | payer MEDICARE, MEDICAID, SELFPAY | PROVIDERS: PCP Family Medicine; Visit Provider Podiatrist Foot & Ankle Surgery | DX: E11.39 Type 2 diabetes mellitus with other diabetic ophthalmic complication (principal); L60.3 Nail dystrophy; G62.9 Polyneuropathy, unspecified; Z79.84 Long term (current) use of oral hypoglycemic drugs | CPT/HCPCS: 11721 ==

== ENCOUNTER → 2024-09-18 11:52 | Outpatient (BNVA) | payer MEDICARE, MEDICAID, SELFPAY | PROVIDERS: PCP Family Medicine; Visit Provider Family Medicine | DX: E78.2 Mixed hyperlipidemia (principal); E11.39 Type 2 diabetes mellitus with other diabetic ophthalmic complication; I15.2 Hypertension secondary to endocrine disorders | CPT/HCPCS: 80061; 83036; 84439; 84443 ==

== ENCOUNTER → 2024-10-24 13:32 | Outpatient (BNVA) | payer MEDICARE, MEDICAID, SELFPAY | PROVIDERS: PCP Family Medicine; Visit Provider Podiatrist Foot & Ankle Surgery | DX: E11.39 Type 2 diabetes mellitus with other diabetic ophthalmic complication (principal); L60.3 Nail dystrophy; G62.9 Polyneuropathy, unspecified; R60.9 Edema, unspecified; Z79.84 Long term (current) use of oral hypoglycemic drugs | CPT/HCPCS: 11721; 99213 ==

== ENCOUNTER → 2024-12-28 13:27 | Outpatient (BNVA) | payer MEDICARE, MEDICAID, SELFPAY | PROVIDERS: PCP Family Medicine; Visit Provider Podiatrist Foot & Ankle Surgery | DX: E11.39 Type 2 diabetes mellitus with other diabetic ophthalmic complication (principal); L60.3 Nail dystrophy; G62.9 Polyneuropathy, unspecified; R60.9 Edema, unspecified; Z79.84 Long term (current) use of oral hypoglycemic drugs | CPT/HCPCS: 11721 ==

== ENCOUNTER → 2025-03-19 12:18 | Outpatient (BNVA) | payer MEDICARE, SELFPAY | PROVIDERS: PCP Family Medicine; Visit Provider Family Medicine | DX: Z00.00 Encounter for general adult medical examination without abnormal findings (principal); E11.39 Type 2 diabetes mellitus with other diabetic ophthalmic complication | CPT/HCPCS: 83036 ==

== ENCOUNTER → 2025-03-21 09:31 | Outpatient (BNVA) | payer MEDICARE, SELFPAY | PROVIDERS: PCP Family Medicine; Visit Provider Podiatrist Foot & Ankle Surgery | DX: E11.8 Type 2 diabetes mellitus with unspecified complications (principal); L60.3 Nail dystrophy; E11.39 Type 2 diabetes mellitus with other diabetic ophthalmic complication; G62.9 Polyneuropathy, unspecified; R60.9 Edema, unspecified; Z79.84 Long term (current) use of oral hypoglycemic drugs | CPT/HCPCS: 11721 ==

== ENCOUNTER 2025-04-02 07:59 | Outpatient (CLI) | payer MEDICARE, SELFPAY ==
--- NOTE | 2025-04-02 08:00 | USCV_ITS ---
Norman Rommel Age: 69 Gender: M : 1955 Exam Date: 04/02/2025 08:08 Ordering Phys: Ирина Ashraf MD Technologist: SENA Exam Location: [facility] [place] Indication: AAA screening HISTORY: Diameter (cm) AP x Transverse x Length Velocity (cm/s) Waveform Prox Aorta: 2.23 x 2.17 x 48.90 Biphasic Mid Aorta: 2.08 x 2.32 x 62.90 Biphasic Distal Aorta: 1.36 x 1.76 x 86.80 Biphasic Right Iliac Prox: 0.69 x 0.82 x 110.30 Biphasic Left Iliac Prox: 0.75 x 0.79 x 138.80 Biphasic Stent Prox Landing x x Aneurysmal Sac Max x x Lt Lat Sac Dim Rt Lat Sac Dim Stent Dist Landing x x Right Iliac Stent x x Left Iliac Stent x x Right Renal Art Left Renal Art FINDINGS: CONCLUSIONS No evidence of abdominal aortic or bilateral iliac aneurysm. Moderate aortic atheromatous disease Michael Burks MD (Electronically Signed) Final Date: 02 April 2025 11:23 S
== END 2025-04-02 08:00 | disposition home or self-care (01) ==
LOC: RAD 07:59
PROVIDERS: PCP Family Medicine; Visit Provider Family Medicine
DX: Z13.6 Encounter for screening for cardiovascular disorders (principal); I70.0 Atherosclerosis of aorta
CPT/HCPCS: 76706